=== PATIENT | female | born 1955 | race American Indian/Alaskan Native ===

== ENCOUNTER 2016-10-22 07:28 | Day surgery (SDC) | payer BC ==
[2016-10-22 08:47] LABS: Basophils % (Auto) 0.7 % (0.0-1.8); Eosinophils % (Auto) 1.4 % (0.0-4.3); Hematocrit 39.8 % (30.3-42.9); Hemoglobin 13.2 gm/dl (10.1-14.3); Mean Corpuscular HGB Conc 33 % (30-34); Mean Corpuscular Hemoglobin 27 pg (28-32); Mean Corpuscular Volume 80 fl (79-97); Platelet Count 285 K/mm3 (140-440); Red Blood Count 4.97 M/mm3 (3.65-5.03); Red Cell Distribution Width 13.3 % (13.2-15.2); White Blood Count 3.9 K/mm3 (4.5-11.0)
[2016-10-22 08:59] LABS: INR 0.88 (0.87-1.13)
[2016-10-22] MEDS ORDERED: NACL 0.9% 500 ML 500 ML IV SCH (09:00)
[2016-10-22 09:04] LABS: Anion Gap 20 mmol/L; BUN/Creatinine Ratio 21.66; Blood Urea Nitrogen 13 mg/dL (7-17); Calcium 9.3 mg/dL (8.4-10.2); Carbon Dioxide 21 mmol/L (22-30); Glucose 288 mg/dL (65-100); Potassium 4.1 mmol/L (3.6-5.0); Sodium 135 mmol/L (137-145)
[2016-10-22] MEDS ORDERED: ECOTRIN PO ONE (09:45)
[2016-10-22] MEDS ORDERED: HEPARIN/NS 5000 UNIT/500ML(CATH LAB) 1,000 ML IR ONE (10:02)
[2016-10-22] MEDS ORDERED: HEPARIN 10,000 UNITS/10 ML ONE (10:02)
[2016-10-22] MEDS ORDERED: NITROGLYCERIN SYRINGE 3 ML ONE (10:03)
[2016-10-22] MEDS: SUBLIMAZE ONE ×2 (10:28→10:36)
[2016-10-22] MEDS: XYLOCAINE 2% INFILTRATI ONE ×2 (10:28→10:32)
[2016-10-22] MEDS: VERSED ONE ×2 (10:28→10:36)
[2016-10-22] MEDS: CALAN ONE ×2 (10:29→10:33)
[2016-10-22] MEDS ORDERED: TYLENOL #3 PO PRN (11:27)
--- NOTE | 2016-10-22 11:31 | Short Stay Summary ---
Short Stay Documentation Date of service: 10/22/16 - History H&P: obtained from office - Allergies and Medications Current Medications: Allergies No Known Allergies Allergy (Verified 10/22/16 08:14) Home Medications Medication Instructions Recorded Confirmed Last Taken Type Insulin Glargine,Hum.rec.anlog 35 unit SQ QHS 11/09/15 10/22/16 10/21/16 History [Lantus Solostar] metFORMIN [Glucophage] 1,000 mg PO QDAY 11/09/15 10/22/16 10/15/16 History Fenofibrate,Micronized (Nf) 134 mg PO DAILY 10/22/16 10/22/16 10/08/16 History [Fenofibrate (Nf)] Active Medications Sodium Chloride (Nacl 0.9% 500 Ml) 500 mls @ 50 mls/hr IV DIRECT ALTAF Stop: 10/22/16 18:59 Last Admin: 10/22/16 09:36 Dose: 50 mls/hr - Brief post op/procedure progress note Date of procedure: 10/22/16 Pre-op diagnosis: chest pain Post-op diagnosis: other (nonobstructive CAD) Procedure: [facility] - see cath report Anesthesia: local Estimated blood loss: none Pathology: none Condition: stable - Disposition Condition at discharge: Stable Disposition: [id number] TO HOME OR SELFCARE - Discharge Diagnoses (1) Chest pain Status: Chronic Qualifiers: Chest pain type: C Ischemic chest pain type: I (2) CAD (coronary artery disease) Status: Chronic Qualifiers: Coronary Disease-Associated Artery/Lesion type: C [place] vs. 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
[2016-10-22] MEDS ORDERED: TYLENOL #3 ONE (11:38)
[2016-10-22 14:03] VITALS: BP 143/79
--- NOTE | 2016-10-22 17:39 | Cardiac Catherization Report ---
INDICATIONS: The patient is a 61-year-old -[place] female who was evaluated in the office for exertional dyspnea and substernal chest pain. Stress EKG showed no evidence of significant ischemia. However, because of symptoms with underlying diabetes mellitus, hyperlipidemia, the patient is being scheduled for cardiac catheterization for definitive diagnosis and treatment. The patient is aware of the procedure, potential complications and alternatives of therapy available. DESCRIPTION OF PROCEDURE: The patient was brought to the catheterization laboratory in a fasting condition. Right wrist area and forearm thoroughly cleansed with Betadine solution. Sterile drapes were applied. Local anesthesia was achieved using 2% Xylocaine. Right radial arterial puncture was made using 21-gauge arterial puncture needle. Subsequently, 5-[place] sheath was introduced. The patient received 3 mg of intra-arterial verapamil and 3000 units of intravenous heparin. Subsequently, using the JR4 catheter, angiograms of the right coronary artery were obtained. Also, left ventriculogram was performed using JR4 catheter. Subsequently, a 5-[place] TIG catheter was used to obtain the angiograms of the left coronary artery in multiple views. At the end of the procedure, catheter and sheath were removed. Good hemostasis was achieved with pressure bandage. No untoward complications were noted. The patient was transferred to the room in stable condition. Following findings were noted. HEMODYNAMICS: 1. Opening aortic pressure 141/76. Left ventricular pressure 145/21. No gradient across the aortic valve. Estimated ejection fraction 50 to 55%. 2. Left ventriculogram done in MOR[place] projection shows normal-sized left ventricle with normal contractility. End-diastolic pressure is elevated up to 21 mmHg. Mitral regurgitation could not be evaluated because of limited amount of dye injected. 3. Right coronary artery dominant vessel arises normally from right coronary cusp. This is relatively a small caliber but dominant vessel. It shows smooth segmental 50 to 60% lesion in the distal RCA. RCA in the AV groove and PDA are relatively small caliber vessels. 4. Left coronary artery arises normally from left coronary cusp. Left main is long with 20% smooth distal lesion. LAD shows 40 to 50% proximal long lesion. Mid and distal LAD shows mild irregularities. Circumflex artery shows 30% lesions in the mid part, about a focal 50% lesion in the distal circ at the origin of a mid marginal branch. Distal marginal branches without significant disease. FINAL IMPRESSION: Normal-sized left ventricle with normal contractility. There is diffuse coronary disease, mild to moderate involving the left anterior descending and left main. Also, moderate disease noted in the mid to distal circ. Right coronary artery dominant vessel shows focal 60% smooth segmental distal lesions. At this time, the patient has diffuse disease in addition to moderate disease in the mid circumflex and right coronary artery. Considering her symptomatology and stress thallium being negative, we will try medical therapy. If the medical therapy does not help alleviate her symptoms, then we can consider intervention of the right coronary artery. We will start her on beta blockers and nitrates and see how she does. If the medical therapy fails, intervention of the right coronary artery can be attempted. The patient tolerated the procedure well. No untoward complications were noted. JOB# [id number] BEVERLY/ELLA JIM
== END 2016-10-22 15:00 | disposition home or self-care (01) ==
LOC: CATHLABREC 07:28
PROVIDERS: ATTEND Internal Medicine
DX: I25.10 Atherosclerotic heart disease of native coronary artery without angina pectoris (principal); E11.9 Type 2 diabetes mellitus without complications; E78.5 Hyperlipidemia, unspecified; M19.90 Unspecified osteoarthritis, unspecified site; Z79.4 Long term (current) use of insulin; Z79.899 Other long term (current) drug therapy; Z90.710 Acquired absence of both cervix and uterus; Z98.890 Other specified postprocedural states; Z82.61 Family history of arthritis; Z82.49 Family history of ischemic heart disease and other diseases of the circulatory system; Z82.3 Family history of stroke; Z83.3 Family history of diabetes mellitus; Z81.8 Family history of other mental and behavioral disorders
CPT/HCPCS: 36415; 80048; 82962; 85025; 85610; 85730; 93005; 93010; 93458; C1887; C1894; J1644; J2250; J3010; J7040; J1815; Q9967